=== PATIENT | female | born 1980 | race Caucasian/White ===

== ENCOUNTER 2022-12-28 16:38 | Emergency (ER) | payer OTHER, SELFPAY ==
--- NOTE | ~2022-12-28 | XR_ITS ---
EXAMINATION: XR heel RT min 2V DATE: 12/28/2022 17:06 INDICATION: Right heel pain. TECHNIQUE: 2 views of right calcaneus were obtained. COMPARISON: None. FINDINGS: Bone alignment is normal. No fracture. 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 Th ere are enthesophytes at the plantar posterior aspects of calcaneal tuberosity. IMPRESSION: 1. No fracture. Reviewed, dictated and finalized at location E. IMPRESSION: 1. No fracture.
[2022-12-28 16:48] VITALS: BP 111/84; PULSE 83; RESP 16; TEMP 36.4; O2SAT 100
--- NOTE | 2022-12-28 16:50 | ED.EXTPRO ---
HPI - Extremity Problem General Chief complaint: Extremity Injury, Lower Stated complaint: Right heel pain Time Seen by Provider: 12/28/22 16:50 Source: patient, RN notes reviewed and old records reviewed Mode of arrival: ambulatory Limitations: no limitations History of Present Illness HPI Narrative: 42-year-old female presents to the [facility] with complaints of right heel pain for 1 week. No known injury. No swelling, ecchymosis, erythema noted. Patient states over the last week the pain to just the heel has gotten worse. Has been doing more walking. Onset (ago): week(s) (1) Related Data Home Medications Medication Instructions Recorded Confirmed cholecalciferol (vitamin D3) 25 25 mcg PO DAILY 01/01/20 12/28/22 mcg (1,000 unit) capsule lisinopril 5 mg tablet 5 mg PO DAILY 01/01/20 12/28/22 tramadol 50 mg tablet 50 mg PO Q6H PRN Pain 01/01/20 12/28/22 atenolol 50 mg tablet 50 mg PO DAILY 12/28/22 12/28/22 baclofen 20 mg tablet 20 mg PO DAILY 12/28/22 12/28/22 naproxen 500 mg tablet 500 mg PO DAILY 12/28/22 12/28/22 Allergies Allergy/AdvReac Type Severity Reaction Status Date / Time azithromycin [From Zithromax] Allergy unknown Verified 12/28/22 17:13 Review of Systems Review of Systems: All systems reviewed & are unremarkable except as noted in HPI and below Constitutional: Constitutional: Reports no additional constitutional complaints Eyes: Eyes: Reports no additional eye complaints ENT: Reports system reviewed and no additional complaints, except as documented Cardiovascular: Cardiovascular: Reports no additional cardiovascular complaints, Denies chest pain and Denies dyspnea Respiratory: Respiratory: Reports no additional respiratory complaints, Denies chest congestion, Denies cough and Denies dyspnea Gastrointestinal: Gastrointestinal: Reports no additional gastrointestinal complaints, Denies abdominal pain, Denies nausea and Denies vomiting Musculoskeletal: Musculoskeletal: Reports as per HPI and Denies abnormal gait Integumentary/Breasts: Skin/Breast: Reports system reviewed and no additional complaints, except as docu Neurologic: Reports system reviewed and no additional complaints, except as documented Psychiatric: Psychiatric: Reports no additional psychiatric complaints Allergic/Immunologic: Allergic/Immunologic: Reports no additional allergic/immunologic complaints PMFSH Past Medical History Medical History Anxiety delivery delivered x1 Hypertension Vaginal delivery X2 Surgical History Surgical History H/O tubal ligation 2007 History of cholecystectomy 1998 History of colposcopy 2019 History of endometrial ablation Family History Family History Mother Diabetes mellitus Cerebrovascular accident Hypertension Father Cerebrovascular accident Social History Social History Smoking status: Never smoker Alcohol intake: current Alcohol use details: social Substance use: never Comments At the time of my signature, I reviewed and agree with the nursing past medical, surgical, social, and family history. There is no relevant family history pertinent to the patient complaint. Exam Const: General: cooperative, healthy appearing, comfortable, no acute distress, well developed, alert and well nourished Nutritional Appearance: well nourished and obese Orientation/consciousness: patient oriented x3 Limitations: no limitations HENMT: Head: normal to inspection Ears: hearing grossly normal bilaterally and external ears normal Face/Nose/Sinus: Normal external nose present, Normal nares present, Normal nasal mucous membranes and turbinates present and normal facial exam Face and sinus: normal facial exam Eyes: General: appearance normal, marcellus
== END 2022-12-28 17:31 | disposition home or self-care (01) ==
PROVIDERS: Emergency Provider Nurse Practitioner; PCP Physician Assistant
DX: M77.31 Calcaneal spur, right foot (principal); I10 Essential (primary) hypertension
CPT/HCPCS: 73650; 99213; G0463